=== PATIENT | female | born 1985 | race Caucasian/White ===

== ENCOUNTER 2021-09-12 02:38 | Emergency (ER) | payer OTHER, SELFPAY ==
--- NOTE | ~2021-09-12 | XR_ITS ---
EXAMINATION: XR foot LT min 3V DATE: 09/12/2021 03:21 INDICATION: Left heel pain. TECHNIQUE: 4 views of left foot were obtained. COMPARISON: Left foot radiographs 07/08/2012 FINDINGS: Bone alignment is normal. No fracture. There is mild osteoarthritis of first metatarsophala ngeal joint. There is an enthesophyte at posterior aspect of calcaneal tuberosity. IMPRESSION: 1. Mild osteoarthritis of first metatarsophalangeal joint. Reviewed, dictated and finalized at location A. 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
[2021-09-12 02:42] VITALS: BP 122/82; PULSE 81; RESP 14; TEMP 36.6; O2SAT 100
[2021-09-12] MEDS: HYDROcodone/acetaminophen (*CRX) 5-325 MG TABLET 1 TAB PO (03:10)
--- NOTE | 2021-09-12 03:34 | ED.GENADULT ---
HPI - General Adult General Chief complaint: Skin/Abscess/Foreign Body Stated complaint: sore on L foot Time Seen by Provider: 09/12/21 02:46 History of Present Illness HPI narrative: Patient is a 36-year-old female who presents ER with left sided heel pain. Progressive the last couple days. Has a blister noted. No draining. No known trauma. Has not put on any ill fitting shoes. 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 No numbness or tingling. No redness. Denies stepping on anything sharp or having an embedded foreign body. Related Data Allergies Allergy/AdvReac Type Severity Reaction Status Date / Time No Known Allergies Allergy Unverified 02/04/16 18:06 Review of Systems Constitutional: Constitutional: Denies chills, Denies fever(s) and Denies weakness Gastrointestinal: Gastrointestinal: Denies nausea and Denies vomiting Musculoskeletal: Musculoskeletal: Denies back pain, Denies arthralgias and Denies joint swelling Comments: Foot pain with blister left side Integumentary/Breasts: Skin/Breast: Denies erythema and Denies rash Neurologic: Denies headache(s), Denies focal weakness and Denies numbness PMFSH Past Medical History Medical History (Updated 09/12/21 @ 03:52 by Hector Maher MD) Anxiety Depression Surgical History Surgical History (Updated 09/12/21 @ 03:52 by Hector Maher MD) History of section History of cholecystectomy Exam Narrative: GENERAL: Well-appearing, well-nourished, and in no acute distress. HEAD: Normocephalic, atraumatic. EXTREMITIES: Normal range of motion. No edema. Deep blister posterior aspect left heel. SKIN: Warm, dry, no rash. NEURO: Alert and oriented x3. PSYCH: Normal mood and affect. Course Course Emergency Course: Patient's blisters on posterior aspect of the heel not near where the plantar fascia is located and she is nontender over the plantar fascia. Recommend a heel cup that can be purchased [id number], weightbearing as tolerated with crutches, and scheduled anti-inflammatories. Will give small amount of [place] for breakthrough pain. Recommend follow-up with podiatry. Patient verbalized understanding treatment plan. Vital Signs Vital signs: Vital Signs Temperature 97.8 F 09/12/21 02:42 Pulse Rate 81 09/12/21 02:42 Respiratory Rate 14 09/12/21 02:42 Blood Pressure 122/82 09/12/21 02:42 Pulse Oximetry 100 09/12/21 02:42 Temperature 97.8 F 09/12/21 02:42 Pulse Rate 81 09/12/21 02:42 Respiratory Rate 14 09/12/21 02:42 Blood Pressure 122/82 09/12/21 02:42 Pulse Oximetry 100 09/12/21 02:42 Medical Decision Making Vital Signs Vital Signs: Vital Signs Temperature 97.8 F 09/12/21 02:42 Pulse Rate 81 09/12/21 02:42 Respiratory Rate 14 09/12/21 02:42 Blood Pressure 122/82 09/12/21 02:42 Pulse Oximetry 100 09/12/21 02:42 Temperature 97.8 F 09/12/21 02:42 Pulse Rate 81 09/12/21 02:42 Respiratory Rate 14 09/12/21 02:42 Blood Pressure 122/82 09/12/21 02:42 Pulse Oximetry 100 09/12/21 02:42 Imaging Data My impression: X-ray left foot: No acute osseous abnormality. Discharge Plan Discharge Clinical Impression: Blister of left heel Patient Disposition: Home, Self-Care Condition: Stable Instructions: Blister (ED) Additional Instructions: Bear weight as tolerated, take scheduled anti-inflammatory medications, and follow-up with podiatry. Return the ER if your skin is red and hot, you have swelling in your foot/leg, you have chest pain or shortness of breath. Prescriptions: New ibuprofen 800 mg tablet 800 mg PO TID Qty: 21 RF: 0 hydrocodone-acetaminophen 5-325 mg tablet 1 tablet PO Q6H PRN (Reason: pain) Qty: 10 RF: 0 Follow-up/Referrals: Donovan Kohli DPM [Physician] - Andrew Harry JR, MD [Physician] - Dusty,JANELLE Jimenez [Non-Staff] - PHYSICIAN,CUTTER OPERATOR ASBESTOS SHINGLE [Primary
[2021-09-12 03:57] VITALS: BP 125/68; PULSE 73; RESP 16; O2SAT 99
== END 2021-09-12 04:00 | disposition home or self-care (01) ==
PROVIDERS: Emergency Provider Emergency Medicine
DX: S90.822A Blister (nonthermal), left foot, initial encounter (principal); M19.072 Primary osteoarthritis, left ankle and foot; X58.XXXA Exposure to other specified factors, initial encounter
CPT/HCPCS: 73630; 99283; A9270

== ENCOUNTER 2023-07-24 12:05 | Emergency (ER) | payer OTHER, SELFPAY ==
--- NOTE | ~2023-07-24 | XR_ITS ---
XR hip BI 2V w AP pelvis DATE: 07/24/2023 12:56 INDICATION: Trauma from fall. Bilateral hip pain. TECHNIQUE: AP pelvis. AP and lateral views of each hip. COMPARISON: None FINDINGS: No pelvic fracture or bone destruction. The pubic symphysis and sacroiliac joints are intac t. Hip joint spaces are symmetric and relatively well preserved. No fracture, dislocation, avascular nec rosis or bone destruction of either hip is detected. IUD overlies the mid pelvis. Bilateral calcified pelvic phleboliths. IMPRESSION: Negative bilateral hips Reviewed, dictated and finalized at location B. 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
--- NOTE | ~2023-07-24 | XR_ITS ---
XR lumbar spine 2-3V DATE: 07/24/2023 12:56 INDICATION: Ground-level fall. Generalized low back pain. TECHNIQUE: AP, lateral, coned lateral lumbosacral views COMPARISON: None FINDINGS: Surgical clips overlie the right upper quadrant, likely due to cholecystectomy. IUD overlies the pelvis. Normal alignment of the lumbar spine. No fracture or bone destruction or spondylolisthesis. The lumba r levels sacral interspaces are well preserved. The lumbar pedicles are intact. The sacroiliac joints appear normal. IMPRESSION: No significant abnormality of the lumbar spine Reviewed, dictated and finalized at location B. 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
[2023-07-24 12:06] VITALS: RESP 18
[2023-07-24 12:13] VITALS: BP 118/76; PULSE 98; RESP 17; TEMP 36.5; O2SAT 100
--- NOTE | 2023-07-24 12:35 | ED.FALL ---
HPI - Fall General Chief Complaint: Fall Stated Complaint: Fall Time Seen by Provider: 07/24/23 12:34 37 YEARS OLD WHITE FEMALE SLIPPED ON ICE 36 HOURS AGO, COMPLAINING OF LEFT HIP PAIN AND LEFT THIGH PAIN. NO OTHER INJURIES. NO LOSS OF CONSCIOUSNESS. DROVE HERSELF TO THE EMERGENCY ROOM Source: patient Related Data Allergies Allergy/AdvReac Type Severity Reaction Status Date / Time No Known Allergies Allergy Unverified 02/04/16 18:06 Review of Systems Review of Systems: All systems reviewed & are unremarkable except as noted in HPI and below PMFSH Past Medical History Medical History Anxiety Depression Surgical History Surgical History History of section History of cholecystectomy Exam Narrative: GENERAL APPEARANCE: WELL-DEVELOPED, WELL-NOURISHED SKIN: NORMAL COLOR HEAD: NORMOCEPHALIC, NONTRAUMATIC EYES: CLEAR CONJUNCTIVA ENT: OROPHARYNX NORMAL, EARS NORMAL, NOSE NORMAL NECK: SUPPLE, NONTENDER CHEST AND RESPIRATORY: AIRWAY PATENT, NO RESPIRATORY DISTRESS, NO ACCESSORY MUSCLE USE HEART: REGULAR RATE/RHYTHM ABDOMEN: SOFT, NONTENDER, NO ORGANOMEGALY, QUIET BOWEL SOUNDS VASCULAR: NORMAL PERIPHERAL PULSES, NORMAL CAPILLARY REFILL. 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 NORMAL TESTED, NO GROSS MOTOR DEFICIT Course Vital Signs Vital signs: Vital Signs Respiratory Rate 18 07/24/23 12:06 Oxygen Delivery Room Air 07/24/23 12:06 Temperature 36.5 C 07/24/23 12:13 Pulse Rate 98 07/24/23 12:13 Respiratory Rate 17 07/24/23 12:13 Blood Pressure 118/76 07/24/23 12:13 Pulse Oximetry 100 07/24/23 12:13 Oxygen Delivery Room Air 07/24/23 12:06 MDM - Fall Imaging Data Radiologist's impression: Impressions Lumbar Spine X-Ray 07/24/23 12:58 IMPRESSION: No significant abnormality of the lumbar spine Hip/Pelvis X-Ray 07/24/23 13:01 IMPRESSION: Negative bilateral hips Critical Care Time Critical Care Time Critical Care Time: No Discharge Plan Discharge Clinical Impression: Contusion, Contusion of hip, left Patient Disposition: Home, Self-Care Condition: Stable Instructions: Contusion in Adults (ED) Additional Instructions: RETURN IF SYMPTOMS ARE WORSENING , CALL YOUR FAMILY PHYSICIAN FOR APPOINTMENT, TAKE TYLENOL NEEDED FOR ACHES AND PAIN, CONTINUE HOME MEDICATIONS. Prescriptions: New naproxen [Naprosyn] 500 mg tablet 500 mg PO BID PRN (Reason: pain) Qty: 14 0RF No Action ibuprofen 800 mg tablet 800 mg PO TID Qty: 21 0RF hydrocodone-acetaminophen 5-325 mg tablet 1 tablet PO Q6H PRN (Reason: pain) Qty: 10 0RF Follow-up/Referrals: PHYSICIAN,MULTIMEDIA DEVELOPER [Non-Staff] - Ashish Jones MD [Physician] - 07/28/23 Stand Alone Forms: Work/School Release IP
== END 2023-07-24 14:09 | disposition home or self-care (01) ==
PROVIDERS: Emergency Provider Emergency Medicine
DX: S70.02XA Contusion of left hip, initial encounter (principal); Z90.49 Acquired absence of other specified parts of digestive tract; W00.0XXA Fall on same level due to ice and snow, initial encounter
CPT/HCPCS: 72100; 73521; 99284